=== PATIENT | female | born 1995 | race African-American/Black ===

== ENCOUNTER 2017-05-15 11:37 | Inpatient (IN) ==
[2017-05-15] MEDS ORDERED: MEPERIDINE 50 MG/1 ML VIAL IV ONE (12:38)
[2017-05-15] MEDS ORDERED: TERBUTALINE 1 MG/1 ML VIAL SUBCUT ONE (12:38)
[2017-05-15] MEDS ORDERED: MEPERIDINE 50 MG/1 ML VIAL ONE (12:46)
[2017-05-15] MEDS ORDERED: ONDANSETRON 4 MG/2 ML VIAL ONE (12:47)
[2017-05-15] MEDS ORDERED: LACTATED RINGERS 1,000 ML IV SCH ×3 (13:00→19:30)
[2017-05-15] MEDS ORDERED: ONDANSETRON 4 MG/2 ML VIAL IV ONE (13:10)
[2017-05-15] MEDS ORDERED: FAMOTIDINE 20 MG/2 ML VIAL IV ONE (13:47)
[2017-05-15] MEDS ORDERED: ceFAZolin 2,000 MG in PREMIX 1 EACH IV ONE (13:47)
[2017-05-15] MEDS ORDERED: CITRIC ACID/SODIUM CITRATE 30 ML UDCUP PO ONE (13:47)
[2017-05-15] MEDS ORDERED: MAGNESIUM SULF RIDER 100 ML IV ONE (13:50)
[2017-05-15 14:06] LABS: Basophils % 0.3 % (0.0-0.8); Eosinophils % 0.3 % (0.00-10.9); Hematocrit 27.7 VOL% (35.7-47.0); Hemoglobin 8.6 GM/DL (12.0-16.0); Immature Granulocytes % 0.5 %; Immature Granulocytes Absolute 0.03 #; Lymphocytes # 2.1 10*3/uL (1.4-4.0); Lymphocytes % 33.5 % (21.3-54.2); Mean Corpuscular Hemoglobin 24 PG (27-34); Mean Corpuscular Volume 76.7 FL (87-102); Mean Platelet Volume 10.8 FL (9.6-12.0); Monocytes # 0.5 10*3/uL (0.11-0.8); Monocytes % 7.6 % (1.7-12.7); NRBC # 0.07 10*3/uL; Neutrophils # 3.7 10*3/uL (1.4-7.4); Neutrophils % 57.8 % (38.7-73.9); Platelet Count 238 T/CUMM (130-400); Red Blood Count 3.61 MC/CUMM (3.8-5.5); Red Cell Distribution Width 16.2 % (9.3-17.3); White Blood Count 6.4 T/CUMM (4-12)
[2017-05-15 14:27] LABS: Albumin 2.7 G/DL (3.4-5.0); Bilirubin,Total 0.5 MG/DL (0.2-1.0); Calcium 8.3 MG/DL (8.5-10.1); Osmolality,Calculated 277.1 MOS/KG (273-304); Potassium 3.4 MMOL/L (3.5-5.1); Total Protein 6.3 G/DL (6.4-8.3)
[2017-05-15] MEDS ORDERED: OXYTOCIN/LR 30 UNIT/1,000 ML BAG IV ONE (15:40)
[2017-05-15] MEDS ORDERED: OXYTOCIN 10 UNIT/ML VIAL ONE (15:43)
[2017-05-15] MEDS ORDERED: MORPHINE 10 MG/10 ML VIAL ONE ×2 (18:07→19:28)
[2017-05-15 19:04] LABS: Cord Arterial Blood HCO3 22.2 MMOL/L; Cord Venous Blood HCO3 19.9 MMOL/L; Cord Venous Blood PO2 25.5
[2017-05-15 19:05] LABS: Apearance,Urine CLEAR (Clear); Bilirubin,Urine Negative (Negative); Blood, Urine Negative (Negative); Glucose,Urine (UA) Negative (Negative); Ketones,Urine 80 mg/dL (Negative); Mucus,Urine Occasional /LPF (Occasional); Nitrite,Urine Negative (Negative); Protein,Urine 30 MG/DL; RBC,Urine 1 /HPF (0-4); Squamous Epithelial Cell,Urine Occasional /HPF (0-10); Urine Color Yellow (Yellow); Urine Specific Gravity 1.013 (1.001-1.035); Urine Urobilinogen < 2.0 EU/DL (0.2-1.0); WBC,Urine 1 /HPF (0-6)
[2017-05-15 19:10] LABS: Cord Arterial Blood HCO3 22.7 MMOL/L
[2017-05-15 19:18] LABS: Cord Venous Blood HCO3 19.8 MMOL/L; Cord Venous Blood PCO2 43.1 MMHG; Cord Venous Blood PO2 21.5
--- NOTE | 2017-05-15 19:18 | OB/GYN History & Physical ---
History of Present Illness Chief complaint: Twin gestation 35 weeks active labor History of present illness: Ms. Blevins is a 21 year old female 2 para 1 who presented with uterine contractions. This patient had been on Procardia but could not take she had a reaction to it with shortness of breath and she subsequently discontinued it. She presented to labor and delivery on 14 May whereupon she also began having problems with continued uterine contractions. She received subcu Brethine and again she had a reaction to the subcu Brethine. She was IV hydrated and discharged home. She returned on 15 May to the office whereupon she continued to contract she was then later transferred over to labor and delivery for further evaluation. In light of her history of reaction to Procardia Brethine she was given a bolus of magnesium sulfate 4 g and her contractions continued to be every 2-3 minutes apart. In light of these findings this patient was then admitted for repeat section risks benefits thoroughly discussed she is in full agreement. Her EDC is 06/19/2017 at approximately 35 weeks gestation the nursery was notified. heart tones were category 1. Home Medications Medication Instructions Recorded Confirmed Type No122/Iron/Folic Acid 1 tablet PO DAILY 05/01/17 05/14/17 History [ Multi Tablet] Magnesium Gluconate Tab 1 tablet PO Q6H 05/08/17 05/14/17 History Allergies Allergy/AdvReac Type Severity Reaction Status Date / Time nifedipine [From Procardia] Allergy Severe Swelling Verified 05/08/17 10:01 of Lip/Tongue/Throat Medical,Surgical,& Family Hx - Medical History Reproductive: No history of: Ectopic , Complication - Surgical History Reproductive Surgeries: Surgical HX of;: Section - Family History Family History: Reports;: Family Hypertension (sister, m aunt) Denies;: Family Anesthesia Reaction, Family Cancer, Family Diabetes, Family Heart Disease, Family Hematology, Family Psychiatric Problems, Family Stroke, Additional Family History - Social History Smoking Status: Never smoker Frequency of Alcohol Use: None Type of Drug Use: None 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: Vital Signs Temp Pulse Resp BP 05/15/17 15:54 100 H 18 126/62 05/15/17 13:30 87 18 129/60 05/15/17 13:06 87 18 129/60 05/15/17 12:36 90 18 125/63 05/15/17 12:06 97.8 F 90 20 128/73 General appearance: mild distress - Antepartum / Post Antepartum Exam Cervix - Dilatation: 1 cm Effacement: 60% Station: 0 station - Head Head exam: Present: normal inspection - Eye Eye exam: Present: EOMI Pupils: Present: BILL - ENT ENT exam: Present: normal exam - Neck Neck exam: Present: normal inspection - Respiratory Respiratory exam: Present: clear to auscultation bilaterally - Breast Breasts: as per HPI Menstruation: as per HPI - Cardiovascular Cardiovascular exam: Present: regular rate and rhythm - GI/Abdominal GI/Abdominal exam: Present: normal bowel sounds - Extremities Exam Extremities exam: Present: normal inspection - Back Exam Back exam: Present: normal inspection - Neurological Exam Neurological exam: Present: alert - Skin Skin exam: Present: normal color Assessment and Plan (1) Active labor Status: Acute Assessment and plan: Twin gestation at 35 weeks gestation. Continue to contract in spite of Brethine Procardia and IV magnesium sulfate. Patient is a previous section she was scheduled risks benefits thoroughly discussed she is in full agreement. Current Visit: Yes (2) Twin gestation in third trimester Status: Acute Current Visit: Yes Results - Labs CBC & BMP: 05/15/17 13:54 05/15/17 13:54
[2017-05-15] MEDS ORDERED: ACETAMINOPHEN 325 MG TABLET PO PRN (19:21)
[2017-05-15] MEDS ORDERED: ONDANSETRON 4 MG/2 ML VIAL IV PRN (19:21)
[2017-05-15] MEDS ORDERED: RHO(D) IMMUNE GLOBULIN 300 MCG SYRINGE IM ONE (19:21)
[2017-05-15] MEDS ORDERED: OXYTOCIN/LR 20 UNIT/1,000 ML BAG IV ONE (19:21)
--- NOTE | 2017-05-15 19:28 | Operative Note ---
Date of procedure: 05/15/17 Procedure: Preoperative diagnosis: Twin gestation at 35 weeks in active labor Postoperative diagnosis: Same Anesthesia:[] Regional Estimated blood loss: [] 300 Surgeon: Dr. Steward Findings: [] Twin A vertex female presentation at 1846PM, cord blood and cord gas obtained, awaiting for scores, twin B breech presentation born at 1847 female, cord blood and cord gas obtained, awaiting scores, and weight Complications: None Procedure: Low transverse section The patient was taken to the operating suite heart tones were obtained prior to and after regional anesthesia was obtained. She was placed in supine position her abdomen was prepped and draped in usual manner for major abdominal surgery. Through an abdominal incision the skin, subcutaneous, fascial layer and peritoneal the abdomen was entered. The bladder flap was created and a low transverse incision was made.. Fluid was clear and normal amount X, Apgars, the placenta was delivered and sent to lab for further evaluation, twin A was vertex, twin B breech injected with intrauterine Pitocin. The first layer of the uterus was closed with #1 Vicryl in a continuous locking manner. Close to imbricate the first layer with #1 Vicryl. The peritoneum was approximated with #2-0 Vicryl.[] All the last sponges and instruments were accounted for -2.) #2 -0 Vicryl. Fascia was approximated with #0-0 Maxon.. The skin was approximated with tyrone. She tolerated procedure well and was taken to recovery room in stable condition. Surgeon / Physician: Mikayla Steward Results - Labs CBC & BMP: 05/15/17 13:54 05/15/17 13:54 Discharge Plan - Discharge Medications No Action No122/Iron/Folic Acid [ Multi Tablet] 1 tablet PO DAILY Magnesium Gluconate Tab 1 tablet PO Q6H - Follow Up or Referral - Forms/Instructions
[2017-05-15] MEDS ORDERED: SODIUM CHLORIDE 0.9% 250 ML IV PRN (19:45)
[2017-05-15] MEDS ORDERED: diphenhydrAMINE 50 MG/1 ML VIAL IV ONE (19:59)
[2017-05-15] MEDS: DOCUSATE SODIUM 100 MG CAPSULE PO SCH (21:44)
[2017-05-16] MEDS ORDERED: diphenhydrAMINE 50 MG/1 ML VIAL IV PRN (01:16)
[2017-05-16] MEDS: IBUPROFEN 800 MG TABLET PO PRN ×3 (04:30→23:53)
[2017-05-16 06:26] LABS: Basophils % 0.4 % (0.0-0.8); Eosinophils # 0.1 10*3/uL (0.0-0.87); Eosinophils % 0.5 % (0.00-10.9); Hematocrit 32.3 VOL% (35.7-47.0); Hemoglobin 10.2 GM/DL (12.0-16.0); Immature Granulocytes % 0.4 %; Immature Granulocytes Absolute 0.04 #; Lymphocytes # 2.6 10*3/uL (1.4-4.0); Lymphocytes % 28.6 % (21.3-54.2); Mean Corpuscular HGB Conc 31.6 GM/DL (32-36); Mean Corpuscular Hemoglobin 25 PG (27-34); Mean Corpuscular Volume 78.8 FL (87-102); Mean Platelet Volume 11.4 FL (9.6-12.0); Monocytes # 0.9 10*3/uL (0.11-0.8); Monocytes % 9.4 % (1.7-12.7); NRBC # 0.07 10*3/uL; Neutrophils # 5.5 10*3/uL (1.4-7.4); Neutrophils % 60.7 % (38.7-73.9); Platelet Count 203 T/CUMM (130-400); Red Cell Distribution Width 17.3 % (9.3-17.3); White Blood Count 9.1 T/CUMM (4-12)
--- NOTE | 2017-05-16 06:56 | Anesthesia Post-Op ---
Anesthesia Post OP - Post Ansesthetic Evaluation Patient seen in post op: Yes Resp: within normal limits CV: within normal limits Mental: within normal limits Temp: within normal limits [id number]: within normal limits Nausea and Vomiting: within normal limits Pain: within normal limits
[2017-05-16] MEDS: METOCLOPRAMIDE 10 MG/2 ML VIAL IV SCH ×3 (09:42→23:53)
[2017-05-16] MEDS: MULTIVITAMIN (PRENATAL) TABLET PO SCH (09:44)
[2017-05-16] MEDS: DOCUSATE SODIUM 100 MG CAPSULE PO SCH ×2 (09:44→21:28)
[2017-05-16] MEDS ORDERED: diphenhydrAMINE CAP 25 MG CAPSULE ONE (21:40)
[2017-05-16] MEDS ORDERED: diphenhydrAMINE CAP 25 MG CAPSULE PO PRN (21:42)
[2017-05-17] MEDS: METOCLOPRAMIDE 10 MG/2 ML VIAL IV SCH (00:03)
[2017-05-17] MEDS ORDERED: METOCLOPRAMIDE 10 MG TABLET ONE (00:04)
[2017-05-17] MEDS: METOCLOPRAMIDE 10 MG TABLET PO SCH ×4 (00:09→18:08)
--- NOTE | 2017-05-17 09:45 | OB/GYN Progress Note ---
Assessment and Plan (1) Status post repeat low transverse section Status: Acute Assessment and plan: Initiate routine postop orders. 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 - Constitutional Vitals: Vital Signs Temp Pulse Resp BP Pulse Ox 05/17/17 07:44 98 F 79 20 119/71 97 05/17/17 06:55 18 05/17/17 05:00 18 05/17/17 04:00 97.6 F 74 18 144/72 98 05/17/17 03:00 18 05/17/17 02:00 18 05/17/17 01:00 18 05/17/17 00:00 97.7 F 102 H 20 149/74 98 05/16/17 20:00 98.6 F 63 19 102/60 97 05/16/17 15:58 97.5 F L 91 H 20 134/80 98 05/16/17 12:00 97.6 F 82 20 113/73 98 General appearance: no acute distress - Antepartum / Post Post Exam Breast: bilateral: normal Abdomen obstetrics: Present: bowel sounds normal Vagina: Present: normal moisture, discharge (Light lochia rubra) Uterus exam: Present: enlarged (Fundus firm and midline incision is well approximated) Anus/Rectum: Present: normal perianal skin - Gyencological / Post Surgical Post Surgical Exam Lungs: bilateral: normal Chest: Normal S1, Normal S2 Extremities DRY CHAIN PULLER: Present: tenderness Abdomen obstetrics progress note: Present: normal appearance Incision OB: Present: normal, intact - Head Head exam: Present: normal inspection - Respiratory Respiratory exam: Present: clear to auscultation bilaterally - Cardiovascular Cardiovascular exam: Present: regular rate and rhythm - GI/Abdominal GI/Abdominal exam: Present: normal bowel sounds, soft - Extremities Exam Extremities exam: Present: normal inspection - Neurological Exam Neurological exam: Present: alert, oriented X3 - Psychiatric Psychiatric exam: Present: normal affect, normal mood - Skin Skin exam: Present: normal color, warm Results - Labs CBC & BMP: 05/16/17 04:31 05/15/17 13:54
[2017-05-17] MEDS: DOCUSATE SODIUM 100 MG CAPSULE PO SCH ×2 (09:50→20:39)
[2017-05-17] MEDS: MULTIVITAMIN (PRENATAL) TABLET PO SCH (09:52)
[2017-05-17] MEDS: SIMETHICONE CHEW 80 MG TABLET PO PRN (09:52)
[2017-05-17] MEDS: MAGNESIUM HYDROXIDE SUSP 30 ML UDCUP PO PRN (09:52)
--- NOTE | 2017-05-17 12:18 | Pathology Report from [facility] ---
[facility] ACCESSION # : [id number] PATIENT NAME : Alena Blevins. ORDERING DR : SARITHA ANDREWS MD CLINICAL HX: IUP @ 35 weeks gestation - Twin gestation - Active labor - Failed tocolytics POST-OP DX: Same SPECIMEN INFO: Placenta GROSS DESCRIPTION: Received fresh labeled with the patients name and consists of a fused twin placenta with separate amnionic sacs. Following separation, placenta (A) weighs 352 grams and measures 22.0 x 14.5 x 2.3 cm. The membranes are pink-valdez and translucent. The umbilical cord measures 12.0 cm and has a single attached clamp. The cord contains three vessels and is marginally inserted. The surface is blue-owusu and intact. The maternal surface displays moderately disrupted red-owusu cotyledons with no abnormalities appreciated upon sectioning. Placenta (A) sections submitted: A membranes and cord, B and maternal surfaces. Placenta (B) weighs 435 grams and measures 26.5 x 13.0 x 2.5 cm. membranes are pink-valdez and translucent. The umbilical cord measures 16.5 cm and has two attached clamps. The cord contains three vessels and is centrally inserted. The surface is blue-owusu and intact. The maternal surface is red-owusu and intact with a few scattered calcifications seen. Sectioning reveals no gross abnormalities. Placenta (B) sections submitted: C membranes and cord, D and maternal surfaces, E dividing membrane. DIAGNOSIS FOR ALENA BLEVINS: TWIN PLACENTAS (A&B), FUSED DIAMNIOTIC, MONOCHORIONIC:PLACENTA A: Focal placental infarction with dystrophic calcification, mild intervillous blood; tri-vessel umbilical cord, marginally inserted; membranes with focal chronic inflammation and attached blood.PLACENTA B: Focal placental infarction with dystrophic calcification, mild intervillous blood; tri-vessel umbilical cord; membranes with focal chronic inflammation and attached blood. COLLECTED DATE: 05/16/2017 [facility] REPORT DATE: 05/17/2017 ELECTRONICALLY SIGNED BY: Ilda Hung M.D. 05/17/2017 - 10:06:11 NETO
[2017-05-17] MEDS: IBUPROFEN 800 MG TABLET PO PRN ×2 (12:50→20:44)
[2017-05-18] MEDS: METOCLOPRAMIDE 10 MG TABLET PO SCH ×3 (00:12→13:21)
[2017-05-18] MEDS: SIMETHICONE CHEW 80 MG TABLET PO PRN (04:36)
[2017-05-18 07:23] VITALS: BP 123/84
[2017-05-18] MEDS: IBUPROFEN 800 MG TABLET PO PRN (07:27)
[2017-05-18] MEDS: DOCUSATE SODIUM 100 MG CAPSULE PO SCH (09:09)
[2017-05-18] MEDS: MULTIVITAMIN (PRENATAL) TABLET PO SCH (09:10)
[2017-05-18] MEDS: MAGNESIUM HYDROXIDE SUSP 30 ML UDCUP PO PRN (09:10)
--- NOTE | 2017-05-18 09:16 | Discharge Summary ---
Hospital Course - Hospital Course Hospital Course: Status post section secondary to twin gestation in active labor. Postop day #2. This patient's postoperative course has been unremarkable. She was slightly anemic after her surgery she received 2 units of packed RBCs and done remarkably well. Bowel movements, voiding well, incision sites intact. She has had no active bleeding and pain is been remarkably controlled with oral meds. She will be discharged follow-up our office approximately 2 weeks. Diagnosis - Discharge Diagnosis (1) Active labor Status: Acute (2) Twin gestation in third trimester Status: Acute Specialty Discharge - Follow Up or Referrals Follow up with: Mikayla Steward MD [Physician] - Discharge Plan - Discharge Data Condition at Discharge: Stable Discharge Diet: advance to your usual diet Activity: resume usual activities as tolerated Hygiene: may shower Weight Bearing at Discharge: full weight bearing Driving: not until seen by doctor Contact your physician if you experience:: fever over 101 - Discharge Medications New Ferrous Sulfate [Ferrous Sulfate Cap] 325 mg PO DAILY #60 capsule HYDROcodone/ACETAMIN 5-325 [[place] 5-325] 1 tablet PO Q6H PRN #30 tablet PRN Reason: Pain Moderate (4-7) Ibuprofen Tab [Motrin Tab] 800 mg PO Q8H PRN #60 tablet PRN Reason: Pain Severe (8-10) No Action No122/Iron/Folic Acid [ Multi Tablet] 1 tablet PO DAILY Magnesium Gluconate Tab 1 tablet PO Q6H - Follow Up or Referral Follow Up: Mikayla Steward MD [Physician] - - Forms/Instructions Instructions: Section (DC), Depression (GEN), Surgical Site Infections (GEN), Wound Healing and Your Diet (DC), Bleeding (DC ) Exam - Constitutional Vitals: Period Temp Pulse Resp BP Sys/Jones Pulse Ox Last 24 Hr 98.5 F-98.9 F 77-98 18-20 122-156/63-88 98-98 Discharge Results Procedures and tests throughout hospitalization: Pending Orders 05/15/17 13:47 Urinalysis Routine DS: Provider Date of admission: 05/15/17 13:47 Primary care physician: Kathy Chirinos Attending physician on admission: Mikayla Steward MD Consults: 05/15/17 13:47 Consult to Anesthesiology [CONS] Routine Consulting Provider: Reason for Anesthesiology: Pre-op Clearance 05/15/17 19:21 Consult to Orchard Worker [CONS] Routine Consult Orchard Worker: Breast Feeding Discharging clinician: Mikayla Steward MD
== END 2017-05-18 17:30 | disposition home or self-care (01) | DRG 540 ==
LOC: N.LDOUT 11:37 → N.LD 11:39 → N.OB 22:27
PROVIDERS: ADMIT Obstetrics & Gynecology; ATTEND Obstetrics & Gynecology
PROC: LDCSECT (ICD-10-PCS; 2017-05-15 15:00)